=== PATIENT | male | born 1990 | race Two or more races ===

== ENCOUNTER 2017-10-19 09:58 | Emergency (ER) | payer SELFPAY ==
[~2017-10-19] VITALS: Ht 165.1 cm; Wt 95.3 kg
--- NOTE | 2017-10-19 10:05 | NUR ---
PATIENT TO ED DT PROGRESSING LEFT SIDED CHEST PAIN X 2 WKS. VSS AT THIS TIME.
[2017-10-19] MEDS ORDERED: IBUPROFEN 600 MG TABLET PO ONE ×2 (10:30→10:36)
[2017-10-19 11:49] VITALS: BP 142/90
--- NOTE | 2017-10-19 11:49 | NUR ---
Patient discharged to home in stable condition. Written and verbal after care instructions given. Patient verbalizes understanding of instruction.
== END 2017-10-19 11:50 | disposition home or self-care (01) ==
LOC: ER 10:00
DX: M94.0 Chondrocostal junction syndrome [Tietze] (principal); R03.0 Elevated blood-pressure reading, without diagnosis of hypertension
CPT/HCPCS: 71045; 93005; 99284; A4606; Z7610

== ENCOUNTER 2022-06-17 20:48 | Emergency (ER) | payer SELFPAY ==
[~2022-06-17] VITALS: Ht 167.6 cm; Wt 70.3 kg
[2022-06-17] MEDS ORDERED: BACI/NEOM/POLY B OINT PKT 1 UDPKT PACKET TP ONE (21:30)
[2022-06-17] MEDS ORDERED: LIDOCAINE HCL/PF 1% 30 ML VIAL TP ONE (21:30)
--- NOTE | 2022-06-17 21:45 | NUR ---
TO ER BED 4. BIBSELF C/O FOOD POISONING STARTED WEDNESDAY . PT IS ALERT AND ORIENTED. AMBULATORY WITH STEADY GAIT. RR EVEN AND NONLABORED. CONNECTED TO MONITOR. AWAITING MD PADILLA
[2022-06-17] MEDS ORDERED: ONDANSETRON HCL/PF 4 MG/2 ML VIAL ONE (22:16)
--- NOTE | 2022-06-17 22:27 | NUR ---
IV LINE ESTABLISHED, [id number]
--- NOTE | 2022-06-17 22:27 | NUR ---
BLOOD COLLECTED AND SENT TO LAB
[2022-06-17] MEDS ORDERED: ACETAMINOPHEN ES 500 MG TABLET ONE (22:28)
[2022-06-17] MEDS ORDERED: IV NS 0.9% 1,000 ML BAG IV ONE (22:30)
[2022-06-17] MEDS ORDERED: ONDANSETRON HCL/PF 4 MG/2 ML VIAL IVP ONE (22:30)
[2022-06-17] MEDS ORDERED: ACETAMINOPHEN 325 MG TABLET PO ONE (22:30)
[2022-06-17 22:40] LABS: BASOPHILS % (AUTO) 0.4 % (0.0-2.0); EOSINOPHILS % (AUTO) 0.2 % (0.0-6.0); HEMATOCRIT 46 % (39-51); HEMOGLOBIN 16.1 g/dL (13.5-17.5); LYMPHOCYTES # (AUTO) 0.9 K/uL (0.8-4.8); LYMPHOCYTES % (AUTO) 9.7 % (20.0-44.0); MEAN CORPUSCULAR HGB CONC 35 g/dl (31.0-36.0); MEAN CORPUSCULAR VOLUME 83 fL (80-96); MONOCYTES # (AUTO) 0.4 K/uL (0.1-1.30); MONOCYTES % (AUTO) 4.2 % (2.0-12.0); NEUTROPHILS % (AUTO) 85.5 % (43.0-81.0); PLATELET COUNT (AUTO) 148 K/uL (150-450); RED BLOOD CELL COUNT(AUTO) 5.46 MIL/uL (4.5-6.0); WHITE BLOOD COUNT (AUTO) 9.3 K/uL (4.3-11.0)
--- NOTE | 2022-06-17 22:45 | NUR ---
URINE SAMPLE COLLECTED AND SENT TO LAB
--- NOTE | 2022-06-17 22:46 | NUR ---
COVID SWAB COLLECTED
[2022-06-17 22:48] LABS: CREATININE 1.2 mg/dL (0.6-1.3)
[2022-06-17 22:54] LABS: ALBUMIN 4.2 g/dL (3.4-5.0); BILIRUBIN,DIRECT 0.3 mg/dL (0.0-0.2); BILIRUBIN,TOTAL 1.7 mg/dL (0.2-1.0); TOTAL PROTEIN, SERUM 8.6 g/dL (6.4-8.2)
--- NOTE | 2022-06-17 23:04 | NUR ---
back from ct
[2022-06-17 23:12] LABS: BILIRUBIN,URINE SMALL (NEGATIVE); COLOR,URINE YELLOW (YELLOW); LEUKOCYTE ESTERASE ,URINE NEGATIVE (NEGATIVE); NITRITE, URINE NEGATIVE (NEGATIVE); PROTEIN,URINE 30 mg/dl (NEGATIVE); UGLUCOSE NEGATIVE (NEGATIVE); UROBILINOGEN,URINE 0.2 EU/dL (0.2)
[2022-06-17] MEDS ORDERED: PIPERACILLIN /TAZOBACTAM 3.375 G in IV D5W 50 ML IV ONE (23:30)
[2022-06-17] MEDS ORDERED: PIPERACILLIN /TAZOBACTAM 3.375 G VIAL IV ONE (23:36)
[2022-06-17] MEDS ORDERED: AMOX-430 PO (23:42)
--- NOTE | 2022-06-17 23:59 | NUR ---
IV removed. Catheter intact and site benign. Pressure and 4x4 applied to site. No bleeding noted.
--- NOTE | 2022-06-18 00:10 | NUR ---
Patient discharged to home in stable condition. Written and verbal after care instructions given. Patient verbalizes understanding of instruction.
[2022-06-18 00:32] VITALS: BP 139/81
== END 2022-06-18 00:32 | disposition home or self-care (01) ==
LOC: ER 21:00
DX: K52.9 Noninfective gastroenteritis and colitis, unspecified (principal); Z20.822 Contact with and (suspected) exposure to COVID-19; R17 Unspecified jaundice
CPT/HCPCS: 99284; 74176; 96365; 96361; 96375; 87426; 85025; 80048; 87040 ×2; 83605; 83690; 80076; 81003; 36415; J3490; J2405; J2543 ×2; J7060; J7030; C9803